=== PATIENT | male | born 1960 | race Caucasian/White ===

== ENCOUNTER → 2016-09-27 | Day surgery (SDC) | payer MEDICARE, MEDICAID ==
[~2016-09-27] MED LIST: BACL20TA PO; CLON0.5T3 PO; CYCL10TA2 PO; DIAZ5TAB PO; FENO145T2 PO; GABA-586 PO; GABA300C8 PO; HYDR-963 PO; HYDR-965 PO; HYDR4TAB PO; IV RINGERS,LACTATED 1000ML 1,000 ML IV SCH; LIDOCAINE 2% PF Vial for OR 5 ML VIAL. ONE; OXYC-323 PO; OXYM15TA PO; PROPOFOL 20 ML IV ONE; RISP4TAB2 PO; SIMV40TA3 PO; TAMS0.4C2 PO; TIZA4TAB PO; [UNRECOGNIZED DRUG - OTHER]
[2016-09-27 12:45] VITALS: BP 106/62
--- NOTE | 2016-09-28 13:58 | PATHOLOGY ---
PATHOLOGY REPORT * * * * * * * * FINAL DIAGNOSIS: Esophageal biopsies, distal esophagus: - Segments of hyperplastic squamous esophageal mucosa consistent with reflux esophagitis. COMMENT: Sections of the distal esophageal biopsy reveal segments of hyperplastic squamous esophageal mucosa. The findings are consistent with reflux esophagitis. There is no evidence of Adams's change, dysplasia, or malignancy. (JPM:mgr; d/t: 09/28/16) REPORT ELECTRONICALLY SIGNED BY: Harish Ling M.D. DATE/TIME: 09/28/2016 13:39 * * * * * * * * GROSS PATHOLOGY: Received in formalin labeled "Matthew Espinoza and distal esophageal," are 3 segments of shaw soft tissue measuring 1.4 x 0.2 x 0.2 cm in aggregate dimensions and ranging from 0.3 to 0.7 cm in maximum dimension. The specimen is submitted entirely in cassette A1. (TTL; 09/27/2016) INITIAL CPT CODE(S): A; 50979 Professional services performed [place] [facility] [place] [address] Technical services performed by [facility] at [address] [place] [address] [address] [address]. SPECIMEN(S) RECEIVED: A.Distal esophageal biopsy CLINICAL HISTORY: Gas, bloating, abnormal CT PATIENT: MATTHEW ESPINOZA /AGE: 1208/19/1960 (Age: 56) PATIENT #: [id number] ALT CASE #: SPECIMEN COLLECTION DATE: 09/27/2016 SPECIMEN RECEIVED DATE: 09/27/2016 [facility] - [address] [place] [address] - PHONE: [phone] * * * END OF REPORT * * *
== END ==
LOC: SURG 10:59
PROVIDERS: ATTEND Internal Medicine Gastroenterology
DX: K21.0 Gastro-esophageal reflux disease with esophagitis (principal); K29.50 Unspecified chronic gastritis without bleeding; K31.7 Polyp of stomach and duodenum; K44.9 Diaphragmatic hernia without obstruction or gangrene; F32.9 Major depressive disorder, single episode, unspecified; J45.909 Unspecified asthma, uncomplicated; F15.90 Other stimulant use, unspecified, uncomplicated; Z72.89 Other problems related to lifestyle; Z98.890 Other specified postprocedural states; F17.210 Nicotine dependence, cigarettes, uncomplicated; Z86.010 Personal history of colon polyps
CPT/HCPCS: 43239; J2704; 88305

== ENCOUNTER → 2019-04-10 | Outpatient (CLI) | payer MEDICARE, MEDICAID ==
[2016-09-27 12:45] VITALS: BP 106/62
[~2019-04-10] MED LIST changes: +CLON0.5T11 PO; -CLON0.5T3 PO; -FENO145T2 PO; +FENO145T30 PO; -GABA-586 PO; +GABA300C18 PO; -GABA300C8 PO; +HYDR-3135 PO; +HYDR-3165 PO; -HYDR-963 PO; -HYDR-965 PO; -IV RINGERS,LACTATED 1000ML 1,000 ML IV SCH; -LIDOCAINE 2% PF Vial for OR 5 ML VIAL. ONE; -OXYC-323 PO; +OXYC1TAB15 PO; -PROPOFOL 20 ML IV ONE; -TIZA4TAB PO; +TIZA4TAB2 PO
--- NOTE | 2019-04-10 14:33 | KCIC ---
STUDY: MRI of the right shoulder without contrast INDICATION: Right shoulder pain and limited range of motion. Reported prior surgery in 2001 for biceps tendon reattachment. COMPARISON: None available. TECHNIQUE: Multiplanar MR imaging of the right shoulder performed without the use of intravenous or intra-articular contrast. FINDINGS: Partially degraded study secondary to motion artifact. AC joint: Moderate AC joint arthrosis with capsular hypertrophy and some surrounding edema. Heel -type subacromial spur with mild mass effect on the subjacent supraspinatus, image 14 series 7. The acromiohumeral interval in this region measures 7 mm. Small volume fluid distending the subacromial subdeltoid bursa. Rotator cuff: Supraspinatus tendinosis as well as a low-grade articular sided tearing of the mid aspect approximately 3.9 cm medial to the footprint with some interstitial extension to the myotendinous junction as well seen on image 12 series 6. Fluid signal seen at the far anterior footprint as on image 8 series 6, is favored within the subacromial subdeltoid bursa as opposed to a supraspinatus tear defect noting that the evaluations somewhat limited due to the degree of shoulder internal rotation. Mild infraspinatus tendinosis without high-grade tear. The teres minor is intact. Subscapularis tendinosis without focal tear. Rotator cuff muscular bulk is maintained. Labrum: Sequela of prior superior labral repair. The superior labrum appears to remain intact though the posterior/superior labrum is severely diminutive in caliber and there is some tearing of the mid posterior to posterior/inferior labrum as seen on image 18 series 3. Long head biceps tendon: The long head biceps tendon is seen within the bicipital groove. The intra-articular portion is thinned and irregular suggestive of tendinosis and partial tearing. Cartilage: Some chondral thinning at the superior and medial humeral head and superior glenoid. Bones: No acute fracture. Miscellaneous: Small shoulder joint effusion. No axillary adenopathy. Focal area of T2 signal elevation within the subcutaneous tissues overlying the scapular spine with a central low intensity focus, image 5 series 4, may represent some granulation tissue about a metallic foreign body, potentially postsurgical Impression: 1. The study is mildly limited due to motion artifact as well as secondary to imaging with the shoulder in internal rotation. 2. Supraspinatus tendinosis as well as a low-grade articular sided tear of the mid fibers approximately 3.9 cm medial to the footprint with interstitial extension to the myotendinous junction. Fluid signal near the anterior footprint is favored within the subacromial subdeltoid bursa as opposed to a tendon tear in this region. Infraspinatus and subscapularis tendinosis as well. Muscular bulk is maintained. 3. Sequela of prior superior labral tear with the superior labrum appearing to remain intact however the posterior/superior labrum is significantly diminutive in size and there is some tearing of the mid posterior to posterior/inferior labrum. 4. Tendinosis and partial tear of the intra-articular long head biceps tendon. The portion of the tendon within the bicipital groove is thinned but intact. 5. Areas of chondral thinning at the superior glenoid and humeral head. 6. Moderate AC joint arthrosis and subacromial spurring. 7. Small shoulder joint effusion and small volume fluid within the subacromial subdeltoid bursa. 8. Potential granulation tissue surrounding a small metallic foreign body in the subcutaneous tissues seen just above the scapular spine. Electronically signed by: EDU PEREZ MD (04/10/2019 2:30 PM) [id number]
== END | disposition home or self-care (01) ==
LOC: KCIC MRI 10:34
PROVIDERS: ATTEND Physician Assistant
DX: S46.111A Strain of muscle, fascia and tendon of long head of biceps, right arm, initial encounter (principal); M19.011 Primary osteoarthritis, right shoulder; M25.411 Effusion, right shoulder; M75.81 Other shoulder lesions, right shoulder; X58.XXXA Exposure to other specified factors, initial encounter; Y93.89 Activity, other specified; Y92.89 Other specified places as the place of occurrence of the external cause; Y99.8 Other external cause status
CPT/HCPCS: 73221

== ENCOUNTER → 2020-10-13 | Outpatient (CLI) | payer MEDICARE, MEDICAID ==
[2016-09-27 12:45] VITALS: BP 106/62
[~2020-10-13] MED LIST changes: +CLON-77 PO; -CLON0.5T11 PO; +FENO145T3 PO; -FENO145T30 PO; -RISP4TAB2 PO; +RISP4TAB65 PO; +SIMV40TA18 PO; -SIMV40TA3 PO
--- NOTE | 2020-10-13 11:14 | KCIC ---
MR CERVICAL SPINE WO DATE: 10/13/2020 10:15 AM INDICATION: CHRONIC PAIN CERVICAL SPONDYLOSIS / Spl. Instructions: / History: Neck pain and LROM, 3 prior surgeries. TECHNIQUE: Multiplanar multisequence magnetic resonance imaging of the cervical spine was performed w ithout administration of intravenous contrast using the standard cervical spine protocol. COMPARISON: None. FINDINGS: Postsurgical changes of ACDF at C4-C7. Reversal of the cervical lordosis centered at C6. No acute fracture. Mild multilevel degenerative di sc desiccation and disc height loss. No marrow replacing process to suggest malignancy. The spinal cord is normal in signal intensity. On the limited views of the cranial cavity and brain, the cerebellum and demetrius have normal morphology and signal characteristics. No Chiari malformation. No soft tissue abnormality. Normal signal voids are present in the vertebral arteries. Diffuse mild spinal canal narrowing, likely congenital. C2-3: Disc osteophyte complex. Ligamentum flavum thickening. Mild spinal canal stenosis. No neural fo raminal narrowing. C3-4: Disc osteophyte complex. Uncovertebral hypertrophy. Mild neural foraminal narrowing. Mild spina l canal stenosis. C4-5: Uncovertebral hypertrophy. Mild neural foraminal narrowing. Mild spinal canal stenosis. C5-6: Uncovertebral hypertrophy. Mild neural foraminal narrowing. Mild spinal canal stenosis. C6-7: Uncovertebral hypertrophy. Mild bilateral foraminal narrowing. No spinal canal stenosis. C7-T1: Disc osteophyte complex. Uncovertebral hypertrophy. Mild neural foraminal narrowing. No spinal canal stenosis. IMPRESSION: Cervical spondylosis, detailed level by level above. Electronically signed by: Dwayne Waldron MD (10/13/2020 11:12 AM) [id number]
--- NOTE | 2020-10-13 12:33 | KCIC ---
MR LUMBAR SPINE WO -[id number] Date: 10/13/2020 10:30 AM Indication: Reason: CHRONIC PAIN LUMBAR SPONDYLOSIS / Spl. Instructions: / History: Chronic LBP and 2 prior surgeries. Popping and pinching. BLE numbness. Comparison: CT abdomen pelvis 11/25/2017. Technique: Multi-planar multi-weighted magnetic resonance imaging of the lumbar spine was performed w ithout intravenous contrast using the standard lumbar spine protocol. FINDINGS: The lumbar spine is normally aligned. No acute fracture. Mild multilevel degenerative disc desiccatio n and disc height loss. Fatty degenerative endplate changes at L4-5. The conus terminates at a normal level. No abnormal signal is seen within the visualized distal spina l cord. No clumping of intrathecal nerve roots. Bilateral renal cysts. T12-L1: No disc bulge. No facet arthropathy. No significant spinal stenosis or neural foraminal narro wing. L1-L2: Disc bulge. Mild facet arthropathy. No significant spinal stenosis. Mild bilateral neural fora sariah narrowing. L2-L3: Disc bulge. Severe facet arthropathy. No significant spinal stenosis or neural foraminal narro wing. L3-L4: Disc bulge. Moderate facet arthropathy. No significant spinal stenosis or neural foraminal russ rowing. L4-L5: Posterior decompression. Disc bulge. Mild right and moderate left facet arthropathy. Left liga mentum flavum thickening. Mild spinal canal stenosis. Mild right and severe left lateral recess narro wing. Severe bilateral neural foraminal narrowing. L5-S1: Disc bulge. Mild facet arthropathy. No significant spinal stenosis or neural foraminal narrowi ng. IMPRESSION: Moderate to severe lumbar spondylosis, detailed level by level above. Electronically signed by: Dwayne Waldron MD (10/13/2020 12:30 PM) [id number]
== END ==
LOC: KCIC MRI 09:34
PROVIDERS: ATTEND Physician Assistant Medical
DX: M47.22 Other spondylosis with radiculopathy, cervical region (principal); M47.26 Other spondylosis with radiculopathy, lumbar region; M48.02 Spinal stenosis, cervical region
CPT/HCPCS: 72141; 72148

== ENCOUNTER → 2021-11-01 | Day surgery (SDC) | payer MEDICARE, MEDICAID ==
[~2021-11-01] VITALS: Ht 182.9 cm; Wt 94.5 kg
[~2021-11-01] MED LIST changes: +ATOR20TA58 PO; +CYCL10TA19 PO; -CYCL10TA2 PO; +HYDROmorphone 2 MG/ML INJ. IVP PRN; +IV RINGERS,LACTATED 1000ML 1,000 ML IV SCH; +LIDOCAINE 2% PF 5 ML VIAL. ONE; +MORPHINE SULFATE 2 MG/ML INJ. IVP PRN; +PROCHLORPERAZINE 10 MG/2 ML VIAL. IVP PRN; +TIZA-75 PO; -TIZA4TAB2 PO; +fentaNYL PF VIAL 100 MCG/2 ML VIAL IVP PRN
[2021-11-01 07:59] VITALS: BP 133/73
--- NOTE | 2021-11-01 08:45 | CONS ---
DATE OF CONSULTATION: 11/01/2021 UPDATED HISTORY AND PHYSICAL REFERRING PHYSICIAN: Dr. Dipak Youngblood. HISTORY OF PRESENT ILLNESS: A 61-year-old male whose past medical history is significant for GERD, colonic polyps as well as hyperlipidemia, chronic pain, who is seen for interval colonoscopy. Bowel habits are regular with occasional constipation with his pain medications. There has been no melena or hematochezia. Weight and appetite have been stable. He is also noted to have increased reflux as well as hoarseness with laryngitis. Prior ENT evaluation has confirmed this and he is here today for further evaluation with upper endoscopy. PAST MEDICAL HISTORY: GERD, history of colonic polyps, chronic pain. ALLERGIES: None. MEDICATIONS: Include atorvastatin, baclofen, gabapentin, hydromorphone. FAMILY HISTORY: Noncontributory. PAST SURGICAL HISTORY: Back surgery, gallbladder surgery, hernia repair, and tonsillectomy. SOCIAL HISTORY: Current day smoker and social drinker. REVIEW OF SYSTEMS: Per records. PHYSICAL EXAMINATION: GENERAL: Reveals a well-nourished, well-developed male who is alert, cooperative, in no acute distress. VITAL SIGNS: Temperature 97.6, pulse is 60, respiratory rate 20. LUNGS: Clear. CARDIOVASCULAR: Reveals an S1, S2, without S3, S4 or appreciable murmur. ABDOMEN: Reveals a soft abdomen, normal bowel sounds, without appreciable hepatosplenomegaly. EXTREMITIES: Reveals no cyanosis, clubbing or edema. IMPRESSION: 1. Gastroesophageal reflux disease with laryngitis, LPR, Adams's, malignancy, achalasia in the differential. Recommend upper endoscopy with possible biopsy. Risks and benefits have been previously discussed with the patient and he is willing to proceed. 2. History of colonic polyps. Surveillance exam is recommended at this time. Risks and benefits have been discussed with the patient and he is willing to proceed. JANNY DR: Vernell TID: [id number]
[2021-11-01 09:15] VITALS: BP 118/82
--- NOTE | 2021-11-03 17:07 | PATHOLOGY ---
[facility] Accession Number: [id number] . 01 Material submitted: . esophagus - DISTAL ESOPHAGUS BIOPSY. Modifiers: distal . 01 Clinical history: . GERD, CRC SCREENING EGD COPD . 02 Diagnosis: Esophageal biopsies, distal esophagus: - Reflux changes. (JPM:pradeep; 11/03/2021) S 11/03/2021 0900 Local . 02 Comment: Sections of the distal esophageal biopsy reveal segments of tangentially oriented, chronically inflamed, hyperplastic squamous esophageal mucosa. The findings are consistent with reflux esophagitis. There is no evidence of Adams's change, dysplasia, or malignancy. (JPM:pradeep; 11/03/2021) . 02 Electronically signed: . Harish Ling MD, Pathologist NPI- [id number] . 01 Gross description: . The specimen is received in formalin, labeled "Matthew Espinoza, distal esophagus biopsy". Received are three segments of pale shaw tissue ranging in size from 0.3-0.5 cm in maximum dimensions. The specimen is submitted entirely in cassette A1. (CAA; 11/02/2021) QAC/QAC 11/02/2021 0900 Local . 02 Pathologist provided ICD-10: K21.9 . 02 CPT . 401503 Specimen Comment: A courtesy copy of this report has been sent to [phone] Specimen Comment: [id number] Specimen Comment: Report sent to / DR GROSS Performed at: 01 [facility] [address], [place], [place] [id number] MD Alexis Reid MD Phone: [phone] Performed at: 02 [facility] [address], [place] [id number] MD Harish iLng MD Phone: [phone]
== END | disposition home or self-care (01) ==
LOC: SURG 07:34
PROVIDERS: ATTEND Internal Medicine Gastroenterology
DX: Z12.11 Encounter for screening for malignant neoplasm of colon (principal); K64.0 First degree hemorrhoids; K21.9 Gastro-esophageal reflux disease without esophagitis; K63.89 Other specified diseases of intestine; K31.89 Other diseases of stomach and duodenum; E78.00 Pure hypercholesterolemia, unspecified; J44.9 Chronic obstructive pulmonary disease, unspecified; G47.30 Sleep apnea, unspecified; M19.90 Unspecified osteoarthritis, unspecified site; F32.9 Major depressive disorder, single episode, unspecified; F17.210 Nicotine dependence, cigarettes, uncomplicated; Z86.010 Personal history of colon polyps; Z72.89 Other problems related to lifestyle; Z79.899 Other long term (current) drug therapy; Z98.890 Other specified postprocedural states
CPT/HCPCS: 43239; 88305; G0105; 45378